=== PATIENT | male | born 1940 | race Caucasian/White ===

== ENCOUNTER 2021-03-01 14:04 | Outpatient (CLI) | payer BC ==
[2021-03-02 08:59] LABS: SARS-CoV-2 PCR by NAA Not Detected (NotDetected)
== END 2021-03-01 14:05 | disposition home or self-care (01) ==
LOC: CSHLAB 14:04
PROVIDERS: ATTEND Surgery
DX: Z20.822 Contact with and (suspected) exposure to COVID-19 (principal); Z86.010 Personal history of colon polyps
CPT/HCPCS: U0003; U0005

== ENCOUNTER 2021-03-04 08:23 | Day surgery (SDC) | payer BC ==
[2021-03-03 10:43] VITALS: BMI 24.8
[2021-03-04] MEDS ORDERED: Lidocaine 2% PF 5 ML VIAL ONE (08:48)
[2021-03-04] MEDS ORDERED: PROPOFOL 40 ML ONE (08:48)
[2021-03-04] MEDS ORDERED: Lidocaine 1% MPF 2 ML VIAL ONE (09:08)
== END 2021-03-04 12:05 | disposition home or self-care (01) ==
LOC: CSHSDC 08:23
PROVIDERS: ATTEND Surgery
PROC: 0DJD8ZZ Inspection of Lower Intestinal Tract, Via Natural or Artificial Opening Endoscopic (ICD-10-PCS; principal; 2021-03-04)
DX: Z12.11 Encounter for screening for malignant neoplasm of colon (principal); Z86.010 Personal history of colon polyps; Z79.899 Other long term (current) drug therapy; Z79.01 Long term (current) use of anticoagulants; I10 Essential (primary) hypertension; E03.9 Hypothyroidism, unspecified; I48.91 Unspecified atrial fibrillation
CPT/HCPCS: J2001; J2704